=== PATIENT | female | born 1960 | race Caucasian/White ===

== ENCOUNTER 2023-01-27 08:30 | Outpatient (CLI) | payer OTHER, SELFPAY ==
--- NOTE | 2023-01-27 08:53 | ECHO_ITS ---
Patient Info Name: Nichole Aguilera Age: 62 years : 1960 Gender: Female Ht: 69 in Wt: 146 lbs BSA: 1.79 m2 HR: 62 bpm BP: 130 / 74 mmHg Technical Quality: Good Exam Date: 01/27/2023 9:01 AM Exam Location: Echo Lab Patient Status: Outpatient Admit Date: 01/27/2023 Staff Ordering Physician: June Coughlin PA-C Attending Provider: June Coughlin PA-C Referring Physician: Madyson LOCKETT; Exam Type: CA echo doppler color flow Study Info Indications R01.1 - Cardiac murmur, unspecified Complete two-dimensional, color flow and Doppler transthoracic echocardiogram is performed. Summary 1. Complete two-dimensional, color flow and Doppler transthoracic echocardiogram is performed. 2. Left ventricular chamber dimension is normal. 3. Left ventricular systolic function is normal, estimated at 60-65%. 4. The left ventricular diastolic function is grade I diastolic dysfunction. 5. E/e' 13 is mildly elevated. 6. There is mild aortic valve sclerosis. 7. There is mild aortic valve stenosis with a peak velocity of 176 cm/s, mean gradient of 6 mmHg, and aortic valve area of 1.5 cm2. 8. The mitral valve has mildly calcified annulus. 9. There is mild mitral valve regurgitation. 10. There is trace tricuspid valve regurgitation. 11. RVSP is not measured due to inadequate TR jet. Left Ventricle E/e' 13 is mildly elevated. Left ventricular chamber dimension is normal. Left ventricular systolic function is normal, estimated at 60-65%. The left ventricular diastolic function is grade I diastolic dysfunction. Right Ventricle Right ventricular systolic function is normal and with normal TAPSE 1.8 cm. Right ventricular chamber dimension is normal. Left Atria Left atrial chamber dimension is normal. Right Atria Right atrial chamber dimension is normal. Aortic Valve The aortic valve is trileaflet. There is mild aortic valve sclerosis. There is mild aortic valve stenosis with a peak velocity of 176 cm/s, mean gradient of 6 mmHg, and aortic valve area of 1.5 cm2. There is no aortic valve regurgitation. Pulmonic Valve There is no pulmonic regurgitation. Mitral Valve The mitral valve has mildly calcified annulus. There is no mitral valve stenosis. There is mild mitral valve regurgitation. Tricuspid Valve There is trace tricuspid valve regurgitation. RVSP is not measured due to inadequate TR jet. Pericardium/Pleural There is no pericardial effusion. Inferior Vena Cava Normal inferior vena cava with >50% collapse upon inspiration consistent with normal right atrial pressure, 5 mmHg. Aorta The aortic root size at the sinus of Valsalva is normal. Left Ventricular Outflow Tract Name Value Normal LVOT 2D LVOT Diameter 2.0 cm LVOT Doppler LVOT Peak Gradient 4 mmHg LVOT Mean Gradient 2 mmHg LVOT VTI 18 cm LVOT VTI/AV VTI Ratio 0.5 LVOT Stroke Volume 57 ml Pulmonic Valve Name Value Normal
== END 2023-01-27 08:31 | disposition home or self-care (01) ==
PROVIDERS: PCP Physician Assistant Medical; Visit Provider Physician Assistant Medical
DX: R01.1 Cardiac murmur, unspecified (principal); I08.0 Rheumatic disorders of both mitral and aortic valves
CPT/HCPCS: 93306

== ENCOUNTER 2024-10-28 09:52 | Emergency (ER) | payer MEDICARE, SELFPAY ==
--- NOTE | ~2024-10-28 | XR_ITS ---
EXAMINATION: XR foot RT min 3V, 10/28/2024 12:00 CDT HISTORY: falll, pain,abrasions COMPARISON: No comparisons available. Findings: There is a nondisplaced fracture of the fifth metatarsal. With a nondisplaced fracture of the fifth metatarsal shaft. No significant degenerative changes. Soft tissues unremarkable. Impression: Fractures detailed above Reviewed, dictated and finalized at location A. Impression: Fractures detailed above
--- NOTE | ~2024-10-28 | XR_ITS ---
EXAMINATION: XR elbow LT 2V, 10/28/2024 12:00 CDT HISTORY: fall, pain, deformity COMPARISON: No comparisons available. Findings: There is a displaced comminuted fracture of the proximal ulna with intra- articular extension and displacement posteriorly measuring 2 cm. There is a displaced fracture of the radial head. The supracondylar humerus is dislocated posteriorly. Large effusion. Soft tissue swelling. Impression: Fracture dislocation detailed above Reviewed, dictated and finalized at location A. Impression: Fracture dislocation detailed above
--- NOTE | ~2024-10-28 | XR_ITS ---
EXAMINATION: XR foot LT min 3V, 10/28/2024 12:00 CDT HISTORY: fall, pain, L 1st toe COMPARISON: No comparisons available. Findings: Nondisplaced fracture proximal aspect of the distal phalanx first digit with intra-articular extension. No significant degenerative changes. Soft tissues unremarkable. Impression: First digit fracture Reviewed, dictated and finalized at location A. Impression: First digit fracture
--- NOTE | ~2024-10-28 | CT_ITS ---
CT HEAD NON-CONTRAST CT C-SPINE CT MAXILLOFACIAL Clinical History: fall, hi Comparison: None Technique: Unenhanced axial images skull base to vertex. Coronal, sagittal reformats. Axial images thoracic inlet to skull base. Sagittal and coronal reformats. CT images acquired with automatic exposure control for dose reduction DLP: 605 mGy-cm Findings: Head: Sulci, ventricles: Unremarkable. No intracerebral hemorrhage. No evidence acute territorial infarct. No mass effect, midline shift, intra-/extra-axial fluid collection. Bony calvarium intact. Visualized paranasal sinuses: Clear. Mastoid air cells: Clear. Forehead hematoma centrally. C-spine: No acute fracture or listhesis. Vertebral bodies normal height and alignment. Mild degenerative changes. Disc spaces maintained. Prevertebral soft tissues within normal limits. Visualized lung apices: Clear. Visualized thyroid: Unremarkable. No enlarged cervical nodes. Maxillofacial: Nasal fractures. IMPRESSION: HEAD: 1. No acute intracranial findings. C-SPINE: 1. No acute fracture. MAXILLOFACIAL: 1. Nasal fractures. Reviewed, dictated and finalized at location R. IMPRESSION: HEAD: 1. No acute intracranial findings. C-SPINE: 1. No acute fracture. MAXILLOFACIAL: 1. Nasal fractures.
[2024-10-28 09:55] VITALS: BP 105/61; PULSE 52; RESP 18; TEMP 36.6; O2SAT 98
[2024-10-28] MEDS: ONDANSETRON INJ 4 MG/2 ML VIAL IV PUSH (10:29)
[2024-10-28] MEDS: HYDROmorphone HCL INJ (*CRX) 1 MG/ML SYR 0.5 MG IV PUSH ×2 (10:31→14:04)
--- OUTSIDE RECORDS SUMMARY | 2024-10-28 10:32 | XMS_ITS | Clinical Summary ---
Author Organization [facility] Address [address] [place] [address] Care Team Providers Care Transaction Coordinator Name Role Phone Shady Garcias MD Primary Care Provider [phone] Vandana Mccollum MD Unavailable [phone] Allergies No known active allergies Medications ALPRAZolam (XANAX) 0.25 mg tabletIndicatio ns:anxiety Take 0.25 mg by mouth 2 (two) times a day as needed 07/24/2020 Active rosuvastatin (CRESTOR) 10 mg tabletIndicatio ns:hyperlipidem ia Take 10 mg by mouth nightly Active vit C,Z-La-vxewp-fadi tein-zeaxan 250-90-40-1 mg capsuleIndicati ons:Adenocarcin dereck in situ (AIS) of uterine cervix Take 1 capsule by mouth nightly Active acetaminophen (TYLENOL) 500 mg tablet Take 2 tablets (1,000 mg total) by mouth every 6 (six) hours as needed for pain 60 tablet 10/19/2020 Active polyethylene glycol (MIRALAX) 17 gram packetIndicatio ns:constipation Take 1 packet (17 g total) by mouth daily 30 packet 10/19/2020 Active Active Problems Problem Noted Date Diagnosed Date Postoperative visit 11/24/2020 Adenocarcinoma in situ (AIS) of uterine cervix 0 09/06/2020 Surgical History Surgery Date Site/Laterality Comments LEG SURGERY 02/17/2000 - 02/15/2001 Right Broken leg repair FOOT SURGERY Right nerve COLONOSCOPY CERVICAL BIOPSY W/ LOOP ELECTRODE EXCISION HARDWARE REMOVAL Medical History Medical History Date Comments Hypercholesteremia PONV (postoperative nausea and vomiting) recalls no history of scopolamine Adenocarcinoma in situ (AIS) of uterine cervix Family History Medical History Relation Name Comments Coronary artery disease Brother Coronary artery disease Father Arrhythmia Mother Breast cancer Mother's Sister Anesthesia problems Neg Hx Relation Name Status Comments Brother Father Mother Mother's Sister Social History Tobacco Use Types Packs/Day Years Used Date Smoking Tobacco: Former Cigarettes 0.5 11 1 976 - 1986 Smokeless Tobacco: Never AUDIT-C Answer Date Recorded Q1: How often do you have a drink containing alc ohol? Monthly or less 10/19/2020 Q2: How many drinks containi ng alcohol do you have on a typical day when you are drinking? 1 or 2 10/19/2020 Q3: How often do you have si x or more drinks on one occasion? Never 10/19/2020 Comments No Sex and Gender Information Value Date Recorded Sex Assigned at Not on file Legal Sex Female 10:14 AM CDT Gender Identity Not on file Sexual Orientation Not on file Obstetrics History Para Term AB IAB SAB Ectopic Multiple Livin g Live Births 0 0 0 0 0 0 0 0 0 0 0 Last Filed Vital Signs Vital Sign Reading Time Taken Comments Blood Pressure 136/88 11/29/2020 3:41 PM CDT Pulse 68 11/29/2020 3:41 PM CDT Temperature 37.2 C (99 F) 11/29/2020 3:41 PM CDT Respiratory Rate 16 11/29/2020 3:41 PM CDT Oxygen Saturation 99% 11/29/2020 3:41 PM CDT Inhaled Oxygen Concentration - - Weight 65.2 kg (143 lb 12.8 oz) 11/29/2020 3:41 PM CDT Height 154.9 cm (5' 0.98) 11/29/2020 3:41 PM CD T Body Mass Index 27.19 11/29/2020 3:41 PM CDT Plan of Treatment Not on file Insurance [facility] CMR Care Teams Transaction Coordinator Relationship Specialty Start Date End Date Shady Garcias MD [address] [place] [id number] PCP - General Internal Medicine 08/17/20 Vandana Mccollum MD [phone] [address] Referring Physician Obstetrics and Gynecology 08/17/20
--- OUTSIDE RECORDS SUMMARY | 2024-10-28 10:32 | XMS_ITS | Clinical Summary ---
Author Organization [facility] Address [address] [place] [address] Care Team Providers Care Lab Technologist Name Role Phone June Coughlin Primary Care Provider [phone] Family History Medical History Relation Comments Breast Cancer Neg Hx Social History Tobacco Use Types Packs/Day Years Used Date Smoking Tobacco: Never Assessed Comments Unknown Sex and Gender Information Value Date Recorded Sex Assigned at Not on file Legal Sex Female 8:12 PM CDT Gender Identity Not on file Sexual Orientation Not on file Plan of Treatment Health Maintenance Due Date Last Done Comments Colorectal Cancer Screening Colonoscopy (10 Years) 1960 Hepatitis C 1977 DTaP, Tdap and Td Vaccines (1 - Tdap) 1978 Pneumococcal Vaccine: 50+ Years (1 of 1 - PCV) 2009 Zoster Vaccines (1 of 2) 2009 COVID-19 Vaccine (3 - season) 2024 06/05/2020, 05/15/2020 Mammogram Screening 06/20/2026 06/20/2024, 06/18/2023, 04/04/2022, Additional history exists RSV Immunization or 60+ Years (1 - 1-dose 75+ series) 2034 Dexa Scan (General) Completed 05/04/2024 Meningococcal B Vaccine Aged Out No l onger eligible based on patient's age to complete this topic Meningococcal Vaccine Aged Out No maverick vianney eligible based on patient's age to complete this topic RSV Immunizations Under 20 Months Aged Out No longer eligible based on patient's age to complete this topic Procedures Procedure Name Priority Date/Time Associated Diagnosis Comments MG SCREENING W MARGE PIERCE DIGI Routine 06/20/2024 11:15 AM CDT Encounter for screening mammogram for malignant neoplasm of breast BONE DENSITY/DEXA Routine 05/04/2024 1:1 0 PM CDT Other primary ovarian failure from Last 3 Months or Most Recently Relevant to Health Maintenance Results * MG SCREENING W MARGE PIERCE DIGI (06/20/2024 11:15 AM CDT) Anatomical Region Laterality Modality Breast Bilateral Mammography 06/20/2024 12:3 2 PM CDT Impressions 06/20/2024 12:34 PM CDT IMPRESSION: No suspicious mammographic findings. Recommendation: 1. Routine Screening, Bilateral Assessment: ACR BI-RADS 2 - BENIGN FINDING(S) Ordered By: VERENICE ROBERTS Interpreted By: Saad Son, 06/20/2024 12:32 PM Narrative 06/20/2024 12:34 PM CDT [facility] [address] [place] [address] Examination: Screening bilateral mammogram Exam Date/Time: 06/20/2024 10:44 AM Clinical history: No current complaints. Comparison: 04/04/2022 Technique: Digital screening mammography of both breasts was performed. Breast tomosynthesis acquisitions were obtained and reviewed. This study was read with the assistance of a computer-aided detection system. Tissue density: There are scattered areas of fibroglandular density. Findings: No suspicious masses, malignant appearing calcifications, skin thickening or other abnormalities are present. No significant change from the prior exam. us Verenice Roberts MD MAMMO Final Resul t * BONE DENSITY/DEXA (05/04/2024 1:10 PM CDT) Anatomical Region Laterality Modality Bone Bone Density 05/04/2024 2:56 PM CDT Impressions 05/04/2024 2:58 PM CDT IMPRESSION: WHO Classification: Osteopenic. Follow-up in 2 years. FRAX Score: 10 year probability major osteoporotic fracture 14%. Hip fracture 1.4%. Ordered By: JUNE COUGHLIN Interpreted By: Moe Fiore MD, 05/04/2024 2:56 PM Narrative 05/04/2024 2:58 PM CDT [facility] [address] [facility] [place] [address] Examination: Bone Density Axial Exam Date/Time: 05/04/2024 12:50 PM Reason For Exam: Comparison: None Findings: DEXA bone densitometry The bone mineral density (BMD) was determined by dual-energy x-ray absorptiometry, the results are as follows: AP Lumbar Spine L2 through L4 BMD Patient (GM/SQCM): 0.902 T-Score (Standard deviations from young adult peak bone density): -1.6 Left femoral neck: BMD Patient (GM/SQCM): 0.695 T-Score (Standard deviations from young adult peak bone density): -1.4 Total left femur: BMD Patient (GM/SQCM): 0.944 T-Score (Standard deviations from young adult peak bone density): 0 Procedure Note Moe Fiore MD - 05/04/2024 [facility] [address] [facility] [place] [address] Examination: Bone Density Axial Exam Date/Time: 05/04/2024 12:50 PM Reason For Exam: Comparison: None Findings: DEXA bone densitometry The bone mineral density (BMD) was determined bydual-energy x-ray absorptiometry, the results are as follows: AP Lumbar Spine L2 through L4 BMD Patient (GM/SQCM): 0.902 T-Score (Standard deviations from young adult peak bonedensity): -1.6 Left femoral neck: BMD Patient (GM/SQCM): 0.695 T-Score (Standard deviations from young adult peak bonedensity): -1.4 Total left femur: BMD Patient (GM/SQCM): 0.944 T-Score (Standard deviations from young adult peak bonedensity): 0 IMPRESSION: WHO Classification: Osteopenic. Follow-up in 2 years. FRAX Score: 10 year probability major osteoporotic fracture 14%. Hipfracture 1.4%. Ordered By: JUNE COUGHLIN Interpreted By: Moe Fiore MD, 05/04/2024 2:56 PM June VALDOVINOS DEXA Final Result from Last 3 Months or Most Recently Relevant to Health Maintenance Insurance [employer] Care Teams Lab Technologist Relationship Specialty Start Date End Date June Coughlin PA [address] [place] [id number] PCP - General PHYSICIAN MELTER CASTER 05/04/24
--- OUTSIDE RECORDS SUMMARY | 2024-10-28 11:20 | XMS_ITS | Clinical Summary ---
Author Organization [facility] Address [address] [place] [address] Care Team Providers Care Telecom Coordinator Name Role Phone Shady Garcias MD Primary Care Provider [phone] Vandana Mccollum MD Unavailable [phone] Allergies No known active allergies Medications ALPRAZolam (XANAX) 0.25 mg tabletIndicatio ns:anxiety Take 0.25 mg by mouth 2 (two) times a day as needed 07/24/2020 Active rosuvastatin (CRESTOR) 10 mg tabletIndicatio ns:hyperlipidem ia Take 10 mg by mouth nightly Active vit C,M-Wq-hdwnc-fadi tein-zeaxan 250-90-40-1 mg capsuleIndicati ons:Adenocarcin dereck in [...] Plan of Treatment Not on file Insurance [facility] CMR Care Teams Telecom Coordinator Relationship Specialty Start Date End Date Shady Garcias MD [address] [place] [id number] PCP - General Internal Medicine 08/17/20 Vandana Mccollum MD [phone] [address] Referring Physician Obstetrics and Gynecology 08/17/20
--- OUTSIDE RECORDS SUMMARY | 2024-10-28 11:20 | XMS_ITS | Clinical Summary ---
Author Organization [facility] [place] Address [address] [place] [address] Care Team Providers Care Lawn Service Manager Name Role Phone June Coughlin Primary Care Provider [phone] Family History Medical History Relation Comments Breast [...] 12:32 PM Narrative 06/20/2024 12:34 PM CDT [facility] [address] [place] [address] Examination: Screening bilateral mammogram Exam Date/Time: 06/20/2024 [...] 2:56 PM Narrative 05/04/2024 2:58 PM CDT [facility] [address] [facility] [place] [address] Examination: Bone Density Axial Exam Date/Time: 05/04/2024 [...] Procedure Note Moe Fiore MD - 05/04/2024 [facility] [address] [facility] [place] [address] Examination: Bone Density Axial Exam Date/Time: 05/04/2024 [...] to Health Maintenance Insurance [employer] Care Teams Lawn Service Manager Relationship Specialty Start Date End Date June Coughlin PA [address] [place] [id number] PCP - General PHYSICIAN MANAGER PLAN 05/04/24
[2024-10-28] MEDS: HYDROmorphone HCL INJ (*CRX) 1 MG/ML SYR IV PUSH (12:18)
--- NOTE | 2024-10-28 12:18 | ED.FALL ---
HPI - Fall General Chief Complaint: Fall <QUINN Weaver Last Filed: 10/28/24 13:52> Stated Complaint: fall <QUINN Weaver Last Filed: 10/28/24 13:52> Time Seen by Provider: 10/28/24 10:08 <QUINN Weaver Last Filed: 10/28/24 13:52> Source: patient <QUINN Weaver Last Filed: 10/28/24 13:52> Mode of arrival: ambulatory <QUINN Weaver Last Filed: 10/28/24 13:52> Limitations: no limitations <QUINN Weaver Last Filed: 10/28/24 13:52> History of Present Illness HPI Narrative: Patient is a 64-year-old female who presents the ED status post fall. Patient reports she was standing in her truck bed trying to open her tailgate. Her she states her tailgate was stuck and she was putting her weight into it to try to open it. She then fell out of the back of the truck. Sustained head injury with diffuse abrasions to her face. Denied LOC. Complains of pain to her right lateral foot, left 1st toe, left elbow, forehead/nose. Denies neck or back pain, chest pain, abdominal pain. Patient is not on any anticoagulation. Tetanus UTD <QUINN Weaver Last Filed: 10/28/24 13:52> Related Data Home Medications: Home Medications ?Medication ?Instructions ?Recorded ?Confirmed ?Last Taken ?Type cyanocobalamin (vitamin B-12) 1,000 mcg PO DAILY 12/22/22 09/20/24 Unknown History 1,000 mcg tablet cholecalciferol (vitamin D3) 50 50 mcg PO DAILY 04/08/23 09/20/24 Unknown History mcg (2,000 unit) capsule multivitamin 1 tablet PO DAILY 01/12/24 09/20/24 Unknown History <QUNIN Weaver Last Filed: 10/28/24 13:52> Allergies/Adverse Reactions: Allergies Allergy/AdvReac Type Severity Reaction Status Date / Time No Known Allergies Allergy Verified 10/28/24 10:03 <Anna Bob PA-C - Last Filed: 10/28/24 13:52> Review of Systems Review of Systems: All systems reviewed & are unremarkable except as noted in HPI. <Anna Bob PA-C - Last Filed: 10/28/24 13:52> All systems reviewed & are unremarkable except as noted in HPI and below <Anna Bob PA-C - Last Filed: 10/28/24 13:52> [facility] Past Medical History Medical History: Medical History Insomnia Osteopenia after menopause Aortic stenosis Mild Vitamin B12 deficiency Vitamin D deficiency Murmur, cardiac Mild aortic stenosis Cervical cancer Anxiety Hypercholesteremia <Anna Bob PA-C - Last Filed: 10/28/24 13:52> Surgical History Surgical History: Surgical History H/O hysterectomy with oophorectomy for cervical cancer -Dr. Johnson / Monserrat Allen 10/19/2020 H/O LEEP <Anna Bob PA-C - Last Filed: 10/28/24 13:52> Family History Family History: Family History Father Hypertension Heart disease Mother Hypertension Heart disease Sibling Hypertension Heart disease <Anna Bob PA-C - Last Filed: 10/28/24 13:52> Social History Social History: Social History Social History: 03/18/24 Very confident with medical forms 09/13/49 patient declined SDOH Smoking status: Never smoker Alcohol intake: never Substance use: never Do You Feel Safe in your Home?: Yes Lack of Transportation: No Lack of Food: Never True Current Housing: I Have Housing Concerned About Future Housing: No Difficulty Paying Gas/Electric Bills: No Difficulty Paying for Meds: No Currently Unemployed: No Education: Bachelor's Degree Difficulty w/ Childcare or Family Care: No Living arrangements: alone Occupation/Education: retired Gender identity (if verbalized by the patient): Female <Anna Bob PA-C - Last Filed: 10/28/24 13:52> Exam Narrative: GENERAL: Uncomfortable appearing, well-nourished, non-toxic, in no acute distress. HEAD: Normocephalic. Numerous abrasions to forehead, facial cheek, nasal bridge. Hematoma L forehead EENT: PERRL/EOMI, conjunctiva clear. No pain with eye movements. No septal hematoma. No active epistaxis. NECK: No appreciable midline spinal tenderness. RESPIRATORY: Airway patent, respirations nonlabored. Clear to auscultation bilaterally, no rales, rhonchi, wheezing. CARDIOVASCULAR: Regular rate and rhythm without murmurs, rubs, or gallops. Peripheral pulses are intact. MUSCULOSKELETAL: Swelling/anterior deformity/diffuse TTP to L elbow with limited ROM. Sensation intact throughout LUE. Abrasion/swelling/TTP to R lateral foot/5th metatarsal region. TTP over L 1st toe w/o swelling/abrasion/bruising. No tenderness over carlita hip joints, anterior chest wall. Pelvis stable. SKIN: Warm, dry, normal color. NEURO: A&O X3. Speech clear. No ataxic movements. PSYCHIATRIC: Appropriate mood and affect. Normal interaction. <Anna Bob PA-C - Last Filed: 10/28/24 13:52> Course RESIDENT CAREGIVER/PA Physician Supervision This visit was performed by both a physician and an APC. I performed all aspects of the MDM as documented. <Mike Conroy MD - Last Filed: 10/28/24 22:18> Vital Signs Vital signs: Vital Signs Temperature 98 F 10/28/24 09:55 Pulse Rate 52 L 10/28/24 09:55 Respiratory Rate 18 10/28/24 09:55 Blood Pressure 105/61 10/28/24 09:55 Pulse Oximetry 98 10/28/24 09:55 Oxygen Delivery Room Air 10/28/24 09:55 Temperature 98 F 10/28/24 09:55 Pulse Rate 52 L 10/28/24 09:55 Respiratory Rate 18 10/28/24 09:55 Blood Pressure 105/61 10/28/24 09:55 Pulse Oximetry 98 10/28/24 09:55 Oxygen Delivery Room Air 10/28/24 09:55 <Anna Bob PA-C - Last Filed: 10/28/24 13:52> Vital Signs Temperature 98 F 10/28/24 09:55 Pulse Rate 52 L 10/28/24 09:55 Respiratory Rate 18 10/28/24 09:55 Blood Pressure 105/61 10/28/24 09:55 Pulse Oximetry 98 10/28/24 09:55 Oxygen Delivery Room Air 10/28/24 09:55 Temperature 98 F 10/28/24 09:55 Pulse Rate 52 L 10/28/24 09:55 Respiratory Rate 18 10/28/24 09:55 Blood Pressure 105/61 10/28/24 09:55 Pulse Oximetry 98 10/28/24 09:55 Oxygen Delivery Room Air 10/28/24 09:55 <Mike Conroy MD - Last Filed: 10/28/24 22:18> MDM - Fall MDM Narrative Medical decision making narrative: XR L elbow: There is a displaced comminuted fracture of the proximal ulna with intra-articular extension and displacement posteriorly measuring 2 cm. There is a displaced fracture of the radial head. The supracondylar humerus is dislocated posteriorly. XR L foot: Nondisplaced fracture proximal aspect of the distal phalanx first digit with intra-articular extension. -- will place in post op shoe XR R foot: There is a nondisplaced fracture of the fifth metatarsal. With a nondisplaced fracture of the fifth metatarsal shaft. -- placed in short leg posterior splint, small abrasion overlying lateral foot bandaged prior to splinting. Tetanus UTD CT brain clear CT facial bones/cervical spine with evidence of nasal bone fractures. Forehead hematoma, no other facial bone fractures. Discussed case with Dr. Jo, orthopedics, recommended transfer to tertiary center for surgical management of elbow. Patient placed in long arm splint in flexed position of comfort for stabilization now. Discussed lab/imaging findings with patient. Pain controlled at this time. Would prefer transfer to [facility]. Discussed case with Dr. Bahena, EDP @ [facility], accepted patient for transfer. Transportation here. Patient in agreement with plan. <Anna Bob PA-C - Last Filed: 10/28/24 13:52> Medical Records Attestation: I reviewed the patient's medical records. <Anna Bob PA-C Last Filed: 10/28/24 13:52> Imaging Data Attestation: I personally reviewed and interpreted this imaging study as follows: <Anna Bob PA-C - Last Filed: 10/28/24 13:52> Radiologist's impression: ITS Impressions Head CT 10/28/24 12:05 IMPRESSION: HEAD: 1. No acute intracranial findings. C-SPINE: 1. No acute fracture. MAXILLOFACIAL: 1. Nasal fractures. Head/Cervical Spine/Facial Bones CT 10/28/24 12:05 IMPRESSION: HEAD: 1. No acute intracranial findings. C-SPINE: 1. No acute fracture. MAXILLOFACIAL: 1. Nasal fractures. Elbow X-Ray 10/28/24 12:11 Impression: Fracture dislocation detailed above Foot X-Ray 10/28/24 12:12 Impression: First digit fracture Foot X-Ray 10/28/24 12:13 Impression: Fractures detailed above <QUINN Weaver Last Filed: 10/28/24 13:52> Discharge Plan Discharge Clinical Impression: Fall from stationary vehicle Qualifiers: Encounter type: initial encounter Qualified Code(s): W17.89XA - Other fall from one level to another, initial encounter Closed head injury Qualifiers: Encounter type: initial encounter Qualified Code(s): S09.90XA - Unspecified injury of head, initial encounter Fracture of nasal bones Qualifiers: Encounter type: initial encounter Fracture type: closed Qualified Code(s): S02.2XXA - Fracture of nasal bones, initial encounter for closed fracture Fracture of fifth metatarsal bone of right foot Qualifiers: Encounter type: initial encounter Fracture type: closed Fracture alignment: displaced Qualified Code(s): S92.351A - Displaced fracture of fifth metatarsal bone, right foot, initial encounter for closed fracture Fracture of distal phalanx of great toe Qualifiers: Encounter type: initial encounter Fracture type: closed Fracture alignment: displaced Laterality: left Qualified Code(s): S92.422A - Displaced fracture of distal phalanx of left great toe, initial encounter for closed fracture <Anna Bob PA-C - Last Filed: 10/28/24 13:52> Patient Disposition: Acute Care Hospital <Anna Bob PA-C - Last Filed: 10/28/24 13:52> Condition: Stable <Anna Bob PA-C - Last Filed: 10/28/24 13:52> Patient Language: Belarusian <QUINN Weaver Last Filed: 10/28/24 13:52> Prescriptions: No Action multivitamin Tablet 1 tablet PO DAILY alprazolam 0.25 mg tablet 0.25 mg PO BID PRN (Reason: anxiety) Qty: 45 1RF sertraline 50 mg tablet 75 mg PO DAILY Qty: 135 0RF cyanocobalamin (vitamin B-12) 1,000 mcg tablet 1,000 mcg PO DAILY cholecalciferol (vitamin D3) 50 mcg (2,000 unit) capsule 50 mcg PO DAILY calcium carbonate 600 mg calcium (1,500 mg) tablet 600 mg PO DAILY Qty: 90 0RF Rx Instructions: OTC rosuvastatin 10 mg tablet 10 mg PO QHS Qty: 90 1RF <QUINN Weaver Last Filed: 10/28/24 13:52> Follow-up/Referrals: June Coughlin PA-C [Primary Care Provider, Family Practice] <Anna Bob PA-C - Last Filed: 10/28/24 13:52>
== END 2024-10-28 14:23 | disposition short-term general hospital (02) ==
PROVIDERS: Emergency Provider Physician Assistant; PCP Physician Assistant Medical
DX: S02.2XXA Fracture of nasal bones, initial encounter for closed fracture (principal); S59.092A Other physeal fracture of lower end of ulna, left arm, initial encounter for closed fracture; S52.122A Displaced fracture of head of left radius, initial encounter for closed fracture; S92.425A Nondisplaced fracture of distal phalanx of left great toe, initial encounter for closed fracture; S92.354A Nondisplaced fracture of fifth metatarsal bone, right foot, initial encounter for closed fracture; S09.90XA Unspecified injury of head, initial encounter; W17.89XA Other fall from one level to another, initial encounter
CPT/HCPCS: 29105; 29515; 70450; 70486; 72125; 73070; 73630; 96374; 96375; 96376; 99285; J1171; J2405